=== PATIENT | female | born 1955 | race Caucasian/White ===

== ENCOUNTER → 2017-03-20 10:49 | Outpatient (CLI) | payer MEDICARE ==
[~2017-03-20] VITALS: Ht 152.4 cm; Wt 122.7 kg
--- NOTE | ~2017-03-20 | HEMODYNAMI ---
PATIENT:LANI SHEPHERD MEDICAL RECORD: [id number] : 55 LOCATION:D.CAT ADMISSION DATE: 03/20/17 Generatedon:03/20/201713:27 Patient name: LANI SHEPHERD Patient #: [id number] SSN: : 1955 Date of study: 03/20/2017 Page: Of Hemodynamic Procedure Report Patient Data Patient Demographics Procedure consent was obtained First Name: LANI Gender: Female Last Name: CORA : 1955 Middle Initial: CRISTINA Age: 61 year(s) Patient #: [id number] Race: Unknown Additional ID: [id number] Contact details [address]: [address] [place] [address] DRIVE State: [place] City: [place] Zip code: [address] Past Medical History Allergies Allergen Reaction Date Comments Reported Penicillins 03/20/2017 Admission Admission Data Admission Date: 03/20/2017 Admission Time: 10:49 Procedure Procedure Types Cath Procedure Diagnostic Procedure LHC LHC w/Coronaries Miscellaneous Procedures Moderate Sedation up to 30 minutes Procedure Description Procedure Date Procedure Date: 03/20/2017 Procedure Start Time: 13:06 Procedure End Time: 13:25 Procedure Staff Name Function Carlos Mckee MD Performing Physician Mayra Gonzalez RT Monitor Carrie Gupta RT Scrub Kyaw Aguirre RN Nurse Procedure Data Cath Procedure Fluoroscopy Diagnostic fluoroscopy Total fluoroscopy Time: 5.6 time: 5.6 min min Diagnostic fluoroscopy Total fluoroscopy dose: 968 dose: 968 mGy mGy Contrast Material Contrast Material Type Amount (ml) Isovue 300 73 Entry Location Entry Primary Successful Side Size Upsize Upsize Entry Closure Block ccessful Closure Location (Fr) 1 (Fr) 2 (Fr) Remarks Device Remarks Radial Right 6 Fr Mechanical artery Short Compression Estimated blood loss: 5 ml Diagnostic catheters Device Type Used For End Catheter Placement DIAGNOSTIC Immaculata 110cm 5 LV Angiography Fr catheter ([id number]) DIAGNOSTIC Immaculata 110cm 5 Right Coronary Fr catheter ([id number]) Angiography DIAGNOSTIC Immaculata 110cm 5 Left Coronary Fr catheter ([id number]) Angiography DIAGNOSTIC Tyrel 110cm Left Coronary 5Fr catheter (112002) Angiography Procedure Complications No complications Procedure Medications Medication Administration Route Dosage 0.9% NaCl I.V. 100 ml/hr Oxygen NC 2 l/min Heparin Flush Bag added to field 2 bags (1000units/500ml NS) Lidocaine 2% added to field 20 Versed I.V. 1 mg Fentanyl I.V. 50 mcg Fentanyl I.V. 50 mcg Versed I.V. 1 mg Radial Cocktail added to field 1 syringe (Verapomil 2mg/Nitro 400mcg/Heparin 1500units) Radial Cocktail I.A. 1 syringe (Verapomil 2mg/Nitro 400mcg/Heparin 1500units) Fentanyl I.V. 50 mcg Hemodynamics Rest Heart Rate: 80 (bpm) Pressure Samples Time Site Value (mmHg) Purpose Heart Use Rate(bpm) 13:12 LV 123/44,25 EDP 116 13:12 LV 122/34,25 Snapshot 107 Gradients Valve Time Site Site Mean SEP/DFP Peak To Heart Use 1 2 (mmHg) (sec/min) Peak Rate (mmHg) (bpm) Aortic 13:13 LV AO 55 Snapshots Pre Cath Intra NCS Post Cath Vital Signs Time Heart Resp SPO2 etCO2 NIBP (mmHg) Rhythm Pain Sedation Rate (ipm) (%) (mmHg) Status Level (bpm) 12:59:16 78 15 98 12.7 166/90(127) NSR 0 (11) 10(A) , No pain 13:04:23 71 14 98 2.2 158/87(134) NSR 0 (11) 10(A) , No pain 13:09:27 77 14 98 37.4 160/89(114) NSR 0 (11) 10(A) , No pain 13:14:32 77 14 92 42.6 147/75(116) NSR 0 (11) 9(A) , No pain 13:19:35 77 15 96 21.7 150/77(118) NSR 0 (11) 10(A) , No pain 13:24:34 83 20 97 0 Measuring NSR 0 (11) 10(A) , No pain 13:24:38 82 20 98 0 160/81(115) NSR 0 (11) 10(A) , No pain Medications Time Medication Route Dose Verified Delivered Reason Notes Ef fectiveness by by 12:58:48 0.9% NaCl I.V. 100 Kyaw Kyaw Per ml/hr Carla Aguirre physician RN RN 12:58:58 Oxygen NC 2 l/min Kyaw Kyaw Per Dorothyigan Dorothyigan physician RN RN 12:59:15 Heparin Flush added 2 bags Kyaw Kyaw used for Bag to Lorigan Lorigan procedure (1000units/500ml field RN RN NS) 12:59:31 Lidocaine 2% added 20ml Kyaw Kyaw for local to vial Lorigan Lorigan anesthetic field RN RN 13:03:16 Versed I.V. 1 mg Kyaw Kyaw for Lorigan Lorigan sedation RN RN 13:03:29 Fentanyl I.V. 50 mcg Kyaw Kyaw for Lorigan Lorigan sedation RN RN 13:07:07 Fentanyl I.V. 50 mcg Kyaw Kyaw for Lorigan Lorigan sedation RN RN 13:07:16 Versed I.V. 1 mg Kyaw Kyaw for Lorigan Lorigan sedation RN RN 13:07:32 Radial Cocktail added 1 Kyaw Kyaw used for (Verapomil to syringe Lorigan Lorigan procedure 2mg/Nitro field RN RN 400mcg/Heparin 1500units) 13:09:58 Radial Cocktail I.A. 1 Kyaw Carlos used for (Verapomil syringe Carla Mckee MD procedure 2mg/Nitro RN 400mcg/Heparin 1500units) 13:26:45 Fentanyl I.V. 50 mcg Kyaw Kyaw for Lorigan Lorigan sedation RN cloth laminating supervisor Log Time Note 12:36:09 Mayra Counts RT(R) sent for patient. Start room use. 12:43:24 Patient received from Pre/Post Procedure Room to CCL 1 Alert and oriented. Tansferred to table in Supine position. 12:43:27 Warm blankets applied, and marlen hugger turned on for patient comfort. 12:43:27 Correct patient and procedure confirmed by team. 12:43:29 Signed procedure consent form obtained from patient. 12:43:30 ECG and BP/O2 sat monitors applied to patient. 12:57:57 Vital chart was started 12:57:59 Baseline sample Acquired. 12:58:03 Rhythm: sinus rhythm 12:58:07 Full Disclosure recording started 12:58:26 H&P Date Dictated: 02/27/2017 Within 30 days and on chart., H&P Addendum completed by physician on day of procedure. (MUST COMPLETE FOR ALL OUTPATIENTS). 12:58:28 Pre-procedure instructions explained to patient. 12:58:28 Pre-op teaching completed and patient verbalized understanding. 12:58:34 Family in waiting room. 12:58:36 Patient NPO since Midnight. 12:58:48 0.9% NaCl 100 ml/hr I.V. was administered by Kyaw Aguirre RN; Per physician; 12:58:51 Patient allergic to Penicillins 12:58:55 Is the patient allergic to Iodine/contrast media? No. 12:58:57 Is patient on blood thinner?No 12:58:58 Oxygen 2 l/min NC was administered by Kyaw Aguirre RN; Per physician; 12:58:59 Patient diabetic? No. 12:59:06 Previous problem with sedation/anesthesia? Yes Oversedation 12:59:07 Snore? Yes 12:59:08 Sleep apnea? Yes 12:59:09 Deviated septum? No 12:59:10 Opens mouth fully? Yes 12:59:11 Sticks out tongue? Yes 12:59:13 Airway obstruction? No ? 12:59:15 Heparin Flush Bag (1000units/500ml NS) 2 bags added to field was administered by Kyaw Aguirre RN; used for procedure; 12:59:16 Dentures? No ? 12:59:18 Pre procedure: right dorsailis pedis pulse 2+ Normal; easily identifiable; not easily obliterated 12:59:20 Modified Kvng's test Ulnar < 7 seconds 12:59:22 Patient pain scale 0/10 ?. 12:59:27 IV patent on arrival in left hand with 0.9% NaCl at KVO. 12:59:31 Lidocaine 2% 20ml vial added to field was administered by Kyaw Aguirre RN; for local anesthetic; 12:59:32 Lab results completed and on chart. 12:59:36 Right Radial & Right Groin area was prepped with chlora-prep and draped in sterile fashion 12:59:37 Alarms reviewed by R. N. 12:59:37 Sharps counted by scrub and verified by R.N. 12:59:39 Final Timeout: patient, procedure, and site verified with staff and physician. All members of the team are in agreement. 12:59:41 Right Radial site verified by team. 12:59:47 Physical assessment completed. ASA score P 2 - A patient with mild systemic disease as per Carlos Mckee MD. 12:59:59 Sedation plan: IV Moderate Sedation Medication:Versed, Fentanyl 13:00:12 Use device set Radial Dx 13:00:13 ACIST Syringe (75221) opened to sterile field. 13:00:14 Medline Cath Pack ([id number]) opened to sterile field. 13:00:14 Bag Decanter (2002S) opened to sterile field. 13:00:14 SHEATH 6FR Slender ([id number]) opened to sterile field. 13:00:15 DIAGNOSTIC WIRE .035 260cm J wire (528360) opened to sterile field. 13:00:15 ACIST Hand Control (50474) opened to sterile field. 13:00:16 ACIST Manifold (88568) opened to sterile field. 13:00:17 Tegaderm 4 x 4 (1626W) opened to sterile field. 13:00:17 MBrace Wrist Support ([id number]) opened to sterile field. 13:00:18 NEEDLE Cook 21G 4cm Radial (Z09509) opened to sterile field. 13:01:37 Zero performed for pressure channel P1 13:03:16 Versed 1 mg I.V. was administered by Kyaw Aguirre RN; for sedation; 13:03:29 Fentanyl 50 mcg I.V. was administered by Kyaw Aguirre RN; for sedation; 13:06:17 Procedure started. 13:06:43 Local anesthetic to right radial artery with Lidocaine 2% by Carlos Mckee MD.INITIAL ACCESS ONLY 13:07:07 Fentanyl 50 mcg I.V. was administered by Kyaw Aguirre RN; for sedation; 13:07:16 Versed 1 mg I.V. was administered by Kyaw Aguirre RN; for sedation; 13:07:32 Radial Cocktail (Verapomil 2mg/Nitro 400mcg/Heparin 1500units) 1 syringe added to field was administered by Kyaw Aguirre RN; used for procedure; 13:09:58 Radial Cocktail (Verapomil 2mg/Nitro 400mcg/Heparin 1500units) 1 syringe I.A. was administered by Carlos Mckee MD; used for procedure; 13:09:59 A 6 Fr Short sheath was inserted into the Right Radial artery 13:10:46 A DIAGNOSTIC Immaculata 110cm 5 Fr catheter ([id number]) was advanced over the wire and used for LV Angiography. 13:12:39 LV gram done using LINDQUIST 13:12:42 Injector settings: Ml/sec: 5, Volume: 15, 13:12:46 EF : 55 % 13:14:23 A DIAGNOSTIC Immaculata 110cm 5 Fr catheter (161977) was advanced over the wire and used for Right Coronary Angiography. 13:16:04 A DIAGNOSTIC Immaculata 110cm 5 Fr catheter (332957) was advanced over the wire and used for Left Coronary Angiography. removed unable to cannulate 13:16:34 A DIAGNOSTIC Tyrel 110cm 5Fr catheter ([id number]) was advanced over the wire and used for Left Coronary Angiography. 13:19:31 Catheter removed. 13:20:15 Sheath removed intact; hemostasis achieved with Mechanical Compression to the Right Radial artery. 13:20:17 Procedure ended.(Physican Out) 13:20:34 Fluoroscopy time 05.60 minutes. 13:20:37 Fluoroscopy dose: 968 mGy 13:20:37 Flurop Dose total: 968 13:20:45 Contrast amount:Isovue 300 73ml. 13:20:47 Sharps counted by scrub and verified by R.N. 13:20:55 Insertion/operative site no bleeding no hematoma. 13:21:05 Post right radial artery:stable, soft, clean and dry 13:21:07 Post Procedure Pulses reassessed and unchanged 13:21:10 Post-procedure physical assessment completed. ASA score P 2 - A patient with mild systemic disease as per Carlos Mckee MD. 13:21:12 Post procedure rhythm: unchanged. 13:21:15 Estimated blood loss: 5 ml 13:21:17 Post procedure instruction explained to patient.Patient verbalizes understanding. 13:21:17 Patient needs reinforcement of post procedure teaching. 13:21:29 Procedure type changed to Cath procedure, Diagnostic procedure, LHC, LHC w/Coronaries, Miscellaneous Procedures, Moderate Sedation up to 30 minutes 13:21:34 Procedure Complication : No complications 13:21:37 See physician's report for complete and final results. 13:22:00 TR BAND Large ([id number]) opened to sterile field. 13:22:25 Procedure and supply charges have been captured, reviewed, submitted and are correct. 13:25:27 TR band inflated with 13cc of air. 13:25:31 Vital chart was stopped 13:25:32 Report given to Pre/Post Procedure Room. 13:25:38 Patient transfered to Pre/Post Procedure Room with Stretcher. 13:25:56 Procedure ended. 13:25:56 Full Disclosure recording stopped 13:26:45 Fentanyl 50 mcg I.V. was administered by Kyaw Aguirre RN; for sedation; 13:27:00 End room use (Document Last) Device Usage Item Name Manufacture Quantity Catalog Hospital Part Current Minima l Lot# / Number Charge Number Stock Stock Serial# Code ACIST Acist 1 01878 952261 486095 221427 20 Syringe Medical (88755) Systems Inc Medline Cath Cardinal 1 [id number] 863643 80337 694689 5 MyPermissions ([id number]) Bag Decanter Microtek 1 2001S 245161 27935 385254 5 () Medical Inc. SHEATH 6FR Terumo 1 [id number] 670577 229514 273135 40 Slender ([id number]) DIAGNOSTIC St Jac 1 838977 421380 190395 623801 30 WIRE .035 260cm J wire (371150) ACIST Hand Acist 1 48652 088832 858712 490939 5 Control Medical (25656) Systems Inc ACIST Acist 1 55974 199969 135634 717142 5 Manifold Medical (67457) Systems Inc Tegaderm 4 x 3M 1 1626W 214878 653308 918187 5 4 (1626W) MBrace Wrist Advanced 1 140-0250-00 136457 96951 324329 5 Support Vascular ([id number]) Dynamics NEEDLE Cook Cook Medical 1 [id number] 770306 981745 213234 5 21G 4cm Radial (Q08514) DIAGNOSTIC Terumo 1 40-5013 802753 733179 536903 5 Immaculata 110cm 5 Fr catheter (938053) DIAGNOSTIC Terumo 1 40-5023 878545 034461 758622 5 Tyrel 110cm 5Fr catheter (871645) TR BAND Terumo 1 [id number] 361096 627879 884125 40 Large ([id number]) Signature Audit [place] Stage Time Signature Unsigned Intra-Procedure 03/20/2017 Mayra 1:27:10 PM Counts RT(R) Signatures Monitor : Mayra Signature : Counts RT Date : Time : [address] [place] [address]
[~2017-03-20 10:49] MED LIST: CLARITIN 10 MG10 MG PO; COZAAR50 MG PO; CYMBALTA30 MG PO; DYAZIDE 37.5/251 CAP PO; LEVOTHYROXINE175 MCG PO; METOPROLOL TART50 MG PO; MOBIC7.5 MG PO; NORCO 7.5/325 T1 TA1 PO; OMEPRAZOLE40 MG PO
[2017-03-20 11:17] VITALS: BP 142/49; Ht 152.4 cm; Wt 122.7 kg
[2017-03-20 11:30] LABS: BASOPHILS 0.3 % (0-2); EOSINOPHILS 3.6 % (0-7); HEMATOCRIT 37.1 % (36.0-48.0); HEMOGLOBIN 11.6 g/dL (12-16); IMMATURE GRANULOCYTES 0.2 % (0-5); LYMPHOCYTES 27.6 % (15-50); MCH 29.7 pg (26.0-34.0); MCHC 31.3 g/dL (31.0-37.0); MCV 95.1 fL (80.0-100.0); MEAN PLATELET VOLUME 8.8 fL (7.4-10.4); MONOCYTES 11.1 % (2-11); NEUTROPHILS 57.2 % (40-80); PLATELET COUNT 246 10x3/uL (130-400); RDW 14.9 % (11.5-14.5); WBC 6.1 10x3/uL (4.8-10.8)
[2017-03-20 11:42] LABS: ANION GAP 7.9 mmol/L (8-16); CALCIUM 9.1 mg/dL (8.5-10.1); CARBON DIOXIDE 32.2 mmol/L (21.0-32.0); CREATININE - SERUM 0.9 mg/dL (0.6-1.3); POTASSIUM - SERUM 4.1 mmol/L (3.5-5.1)
--- NOTE | 2017-03-20 13:50 | NUR ---
RIGHT WRIST TR BAND CDI, NO BLEEDING OR HEMATOMA NOTED. NO C/O PAIN OR NAUSEA. 2L NC, NO RESP DISTRESS. VSS. FAMILY AT BEDSIDE, CALL LIGHT WITHIN REACH.
--- NOTE | 2017-03-20 14:20 | NUR ---
2L NC, NO RESP DISTRESS. RIGHT WRIST TR BAND CDI, NO BLEEDING OR HEMATOMA NOTED. NO C/O NAUSEA OR PAIN. SANDWICH TRAY AND DRINK GIVEN. VSS. CALL LIGHT WITHIN REACH.
--- NOTE | 2017-03-20 15:01 | NUR ---
3CC OF AIR REMOVED FROM TR BAND, NO BLEEDING NOTED. VSS. NO C/O AT THIS TIME. WILL CONTINUE TO MONITOR.
--- NOTE | 2017-03-20 15:15 | NUR ---
4CC OF AIR REMOVED FROM TR BAND, NO BLEEDING NOTED. VSS.
--- NOTE | 2017-03-20 15:35 | NUR ---
LEFT HAND PIV D/C'D WITH CATHETER INTACT, BAND AID TO SITE. UP TO BEDSIDE TO GET DRESSED.
--- NOTE | 2017-03-20 15:42 | NUR ---
AMBULATED TO RESTROOM TO VOID.
--- NOTE | 2017-03-20 15:50 | NUR ---
REMAINING AIR REMOVED FROM TR BAND, DRESSING PLACED TO SITE. DISCHARGE INSTRUCTIONS GIVEN, VERBALIZED UNDERSTANDING.
--- NOTE | 2017-03-20 16:00 | NUR ---
TAKEN OUT VIA WHEELCHAIR BY CATH FRUIT BUYER. LEFT FACILITY WITH FAMILY AND ALL PERSONAL BELONGINGS.
== END ==
LOC: D.CATH 10:49
PROVIDERS: Internal Medicine Cardiovascular Disease
DX: R07.89 Other chest pain (principal); Z01.812 Encounter for preprocedural laboratory examination

== ENCOUNTER 2017-05-08 06:09 | Day surgery (SDC) | payer MEDICARE ==
[~2017-05-08] VITALS: Ht 152.4 cm; Wt 118.2 kg
--- NOTE | ~2017-05-08 | OP ---
PATIENT NAME: LANI SHEPHERD MEDICAL RECORD: [id number] :55 [facility] DATE: SURGEON: EDWARD WOODS MD DATE OF OPERATION: 05/08/2017 PROCEDURE: Colonoscopy. INDICATIONS: Screening. MEDICATIONS: Per TIVA. The patient has obesity, obstructive sleep apnea, coronary artery disease, hypertension. She received 220 mg of propofol for this procedure, O2 4 liters. FINDINGS: Informed consent was given. The patient was made comfortable with the above medications. After reaching an adequate level of sedation by slow IV push, the patient was placed on her left side. The rectal exam revealed good sphincter tone, no fissures or fistulas were appreciated. No external skin tags were seen. The colonoscope was advanced to the cecum where the ileocecal valve and appendiceal orifice were identified. The scope was then carefully withdrawn and mucosa was inspected. The patient had some very mild left-sided diverticulosis without diverticulitis. On retroflexion and final withdrawal of the scope, hemorrhoids were seen. It should be noted that the patient had adhesions from previous abdominal surgeries, which did add to the difficulty of this procedure. IMPRESSION: 1. The cecum was identified as well as the ileocecal valve and appendiceal orifice. 2. Mild left-sided diverticulosis without diverticulitis. 3. Internal hemorrhoids, very mild. 4. Adhesions adding to the difficulty of this procedure. 5. Of note, the patient did not stop her Meloxicam for this procedure. PLAN: 1. Resume medications. 2. High fiber diet. 3. Probiotics daily. TRANSINT:[id number] Voice Confirmation ID: [id number] DOCUMENT ID: [id number] EDWARD WOODS MD CC: [id number] DICTATION DATE: 05/08/17 0955 ACCESS SPEC: 05/08/17 1217 [facility] 05/08/17 [facility] [address] [place] [place] [id number]
[2017-05-08 06:57] LABS: BASOPHILS 0.3 % (0-2); EOSINOPHILS 2.1 % (0-7); HEMATOCRIT 37.5 % (36.0-48.0); HEMOGLOBIN 11.7 g/dL (12-16); IMMATURE GRANULOCYTES 0.2 % (0-5); LYMPHOCYTES 23.6 % (15-50); MCHC 31.2 g/dL (31.0-37.0); MCV 96.2 fL (80.0-100.0); MEAN PLATELET VOLUME 8.7 fL (7.4-10.4); MONOCYTES 9.3 % (2-11); NEUTROPHILS 64.5 % (40-80); PLATELET COUNT 239 10x3/uL (130-400); RDW 16.3 % (11.5-14.5); WBC 6.6 10x3/uL (4.8-10.8)
[2017-05-08 07:17] LABS: ANION GAP 9.8 mmol/L (8-16); CALCIUM 8.9 mg/dL (8.5-10.1); POTASSIUM - SERUM 3.8 mmol/L (3.5-5.1)
[2017-05-08 07:36] VITALS: Ht 152.4 cm; Wt 118.2 kg
== END 2017-05-08 11:00 | disposition home or self-care (01) ==
LOC: D.OPS 06:09
PROVIDERS: Anesthesiology
DX: Z12.11 Encounter for screening for malignant neoplasm of colon (principal); I10 Essential (primary) hypertension; K21.9 Gastro-esophageal reflux disease without esophagitis; G47.30 Sleep apnea, unspecified; E66.01 Morbid (severe) obesity due to excess calories; Z68.43 Body mass index [BMI] 50.0-59.9, adult; Z01.812 Encounter for preprocedural laboratory examination

== ENCOUNTER → 2018-11-24 10:54 | Outpatient (CLI) | payer MEDICARE ==
[2017-05-08 07:36] VITALS: BMI 50.8
== END | disposition home or self-care (01) ==
LOC: D.HCCARDIO 10:54
PROVIDERS: ATTEND Internal Medicine Cardiovascular Disease
DX: I10 Essential (primary) hypertension (principal)